=== PATIENT | male | born 1950 | race Caucasian/White ===

== ENCOUNTER → 2023-08-14 14:55 | Outpatient (REF) | payer MEDICARE, OTHER, SELFPAY | LOC: RAD 14:55 | PROVIDERS: ATTENDING PHYSICIAN Surgery Vascular Surgery | DX: I74.5 Embolism and thrombosis of iliac artery (principal); I71.40 Abdominal aortic aneurysm, without rupture, unspecified | CPT/HCPCS: 93922; 93925 ==

== ENCOUNTER → 2023-09-12 10:31 | Outpatient (REF) | payer MEDICARE, OTHER, SELFPAY ==
[2023-09-12 12:35] LABS: Blood Urea Nitrogen 12 mg/dl (9-20); Calcium 10.3 mg/dl (8.4-10.2); Carbon Dioxide 32 mmol/L (22-30); Chloride 102 mmol/L (98-107); Glucose 103 mg/dl (70-99); Potassium 4.6 mmol/L (3.5-5.1); Sodium 141 mmol/L (135-145); eGFR > 60.00
== END ==
LOC: REG 10:31
PROVIDERS: ATTENDING PHYSICIAN Registered Nurse; FAMILY PHYSICIAN Family Medicine
DX: I74.5 Embolism and thrombosis of iliac artery (principal)
CPT/HCPCS: 36415; 80048

== ENCOUNTER → 2023-09-16 10:03 | Outpatient (REF) | payer MEDICARE, OTHER, SELFPAY | LOC: HWRAD 10:03 | PROVIDERS: ATTENDING PHYSICIAN Registered Nurse; FAMILY PHYSICIAN Family Medicine; REFERRING PHYSICIAN Surgery Vascular Surgery | DX: I74.5 Embolism and thrombosis of iliac artery (principal); I71.40 Abdominal aortic aneurysm, without rupture, unspecified | CPT/HCPCS: 74174; Q9967 ==

== ENCOUNTER 2023-10-07 18:58 | Emergency (ER) | payer MEDICARE, OTHER, SELFPAY ==
[2023-10-07 18:59] VITALS: BP 118/70
[2023-10-07] MEDS: TYLENOL 1000 MG PO (19:11)
[2023-10-07 19:46] LABS: % Basophils 0.3 % (0-2); % Eosinophils 0.8 % (0-6); % Immature Granulocytes 0.4 % (0-0.5); % Lymphocytes 9.2 % (20.5-51.1); % Monocytes 8.3 % (1.7-9.3); Absolute Eosinophils 0.1 10^3/uL (0-0.7); Absolute Lymphocytes 0.7 10^3/uL (1.2-3.4); Absolute Monocytes 0.6 10^3/uL (0.1-0.6); Absolute Neutrophils 6.2 10^3/uL (1.4-6.5); Hematocrit 42.5 % (39.0-52.0); Hemoglobin 14.5 g/dL (13.0-18.0); Mean Corp Hgb Conc. 34.1 g/dL (33.0-37.0); Mean Corpuscular Hgb 28.8 pg (27.0-31.0); Mean Corpuscular Volume 84.3 fL (80.0-94.0); Mean Platelet Volume 10.3 fL (7.4-10.4); Nucleated Red Blood Cells % 0 % (-); Platelet Count 157 10^3/uL (130-400); Red Blood Cell Count 5.04 10^6/uL (4.70-6.10); Red Cell Dist. Width 13.9 % (11.5-14.5); White Blood Cell Count 7.6 10^3/uL (4.8-10.8)
[2023-10-07 19:57] LABS: Lactic Acid 2.1 mmol/L (0.7-2.0)
[2023-10-07 20:00] LABS: Blood Urea Nitrogen 13 mg/dl (9-20); Calcium 9.7 mg/dl (8.4-10.2); Carbon Dioxide 25 mmol/L (22-30); Chloride 100 mmol/L (98-107); Glucose 99 mg/dl (70-99); Sodium 140 mmol/L (135-145); eGFR > 60.00
[2023-10-07 21:03] VITALS: BMI 32.4
[2023-10-07 21:12] VITALS: BP 102/56
--- NOTE | 2023-10-07 21:29 | ED.GENMED ---
History of Present Illness
General
Chief Complaint: Urinary Symptoms
Source: patient and family (Son)
Exam Limitations: none
Time Seen by Provider: 10/07/23 21:06
History of Present Illness
History of Present Illness:
This is a 72 year old male that is brought in by family. States that they thought possible he had a UTI. stats that he was just slower then normal. States that this is what he was like when he hat a UTI. States that he does have a Dry cough. States
that he may have had a low grade fever at home. Denies any chills, chest pain, SOB, abd pain, nause, vomiting, diarrhea, headache, dizziness, urinary burning.
Past History
Past History
ED Past Medical History: Asthma, CAD, COPD, CVA (left sided weakness), GERD, HTN, Hypercholesterolemia, NIDDM, [place] and Other (chronic back pain, Sleep apnea, UTI)
ED Past Surgical History: Cardiac (Stents X 3), Orthopedic (Bilateral rotator cuff, ) and Other (AAA repaired, Fem- fem Bypass)
Social History
Tobacco: Former smoker
Alcohol: Occasional
Personal:
Living: with family
Review of Systems
Review of Systems
All Other Systems: ROS reviewed and negative except as documented in HPI and ROS
Constitutional: Reports fever; Denies chills
EENT: Reports no symptoms
Respiratory: Reports cough; Denies trouble breathing
Cardiac: Reports no symptoms; Denies chest pain
ABD/GI: Reports no symptoms; Denies abdominal pain, nausea, vomiting or diarrhea
: Reports no symptoms; Denies dysuria, frequency or urgency
Musculoskeletal: Reports no symptoms
Skin: Reports no symptoms
Neurological: Reports no symptoms; Denies dizzy or headache
Psychiatric: Reports no symptoms
Phy Exam
General Physical Exam
General Presentation: no apparent distress
General age: appears stated age
General Skin: warm and dry
General Habitus: elderly
General Mental: alert
General Hydration: appears well hydrated
ENT Exam
ENT Exam: TM's normal, pharynx normal and neck supple
Eye Exam
Eye Exam: EOMI
Cardiovascular Exam
Cardiovascular Exam: regular rate/rhythm, no edema and normal peripheral pulses
Pulmonary Exam
Pulmonary Exam: no respiratory distress, chest non tender, no rhonchi, no wheezing and other (Fine crackles right base, Dry cough occasional)
Gastrointestinal Exam
Gastrointestinal Exam: normal bowel sounds, non tender, soft, no organomegaly, no pulsatile mass and non distended
Musculoskeletal Exam
Musculoskeletal Exam: no edema and other (left arm placid from stroke)
Skin Exam
Skin Exam: normal color, warm/dry, no rash and no petechia
Psychiatric Exam
Psychiatric Exam: normal mood/affect
Course
Orders/Labs/Results
Orders:
Orders
10/07/23 19:11
Acetaminophen [Tylenol] 1,000 mg PO NOW STA
10/07/23 19:25
Basic Metabolic Panel Urgent
Comment: NO K
Complete Blood Count/With Diff Urgent
Lactic Acid Q4H
Comment: ON ICE, CANCEL 2ND ORDER IF FIRST LACTIC ACID LEVEL <2
10/07/23 21:17
COVID-19 Antigen Urgent
Source: Nasal Swab
10/07/23 21:29
0.9% Sodium Chloride 1000 ml [Nss] 1,000 ml IV BOLUS
10/07/23 21:31
CR Chest - 2 Views Urgent
Comment:
Reason For Exam: fever, cough
10/07/23 23:27
Lactic Acid Q4H
Comment: ON ICE, CANCEL 2ND ORDER IF FIRST LACTIC ACID LEVEL <2
Urinalysis Reflex To Culture Urgent
Date Specimen was Collected: 10/07/23
Time Specimen was Collected: 19:03
Abnormal Lab Results
10/07/23
19:25
Absolute Lymphs (auto) 0.7 L 10^3/uL
(1.2-3.4)
Neutrophils % 81.0 H %
(42.2-75.2)
Lymphocytes % 9.2 L %
(20.5-51.1)
Lactic Acid 2.1 H mmol/L
(0.7-2.0)
10/07/23 19:25
10/07/23 19:25
Labs unremarkable. lactic acid slightly elevated at 2.1, Urine is negative for infection. Lactic acid down to 1.2, COVID negative
Vital Signs
Initial and Last Documented VS:
Initial Vital Signs
Temp Pulse Resp BP Pulse Ox
101.7 F H 110 20 118/70 96
10/07/23 18:59 10/07/23 18:59 10/07/23 18:59 10/07/23 18:59 10/07/23 18:59
Last Documented Vital Signs
Temp Pulse Resp BP Pulse Ox
99.7 F 85 22 113/66 96
10/07/23 21:07 10/07/23 22:30 10/07/23 22:30 10/07/23 22:00 10/07/23 18:59
MDM/Problems Addressed
Differential Diagnosis Includes:
COVID, Urinary tract infection.
MDM/Problems Addressed:
This is a 72 year old male that is brought in by family with c/o concern for UTI. States that he was just a little slower then normal and this is the way he acted when he had a UTI in th past.
will check labs. COVID and get Urine. will also give IV fluids and get chest x-ray.
back into see patient and family. Explained that his blood work is normal and he is negative for COVID. Chest x-ray is normal along with patient urine. Explained that this is most likely something viral. Patient to increase his water intake to 8-8oz
glasses daily. Use Tylenol 1000mg every 6 hours for fever. Follow up with the family doctor. Return with any concerns.
Chronic conditions affecting care:
CVA
Acute Exacerbation and/or Progression of Chronic Illness:
NA
*Radiology
Radiology exam reviewed: radiology read reviewed (Chest-NO acute cardiopulmonary abnormality. )
*Pulse Oximetry
Patient hypoxic: no
*EKG
Interpreted by ED Provider?: NA
Rate: EKG- N/A
*Solid Fiber Paster Operator Interpretation
Rate: normal
Heart Rate: 86
Rhythm: sinus
*Critical Care Note
Total Time (30-74mins, 75-104mins- exclusive of procedures): Not Applicable
ED Attending Note
-
Portions of this chart may have been created with voice recognition software.� Occasional wrong word or��sound alike� substitutions may have occurred due to the inherent limitations of voice recognition software.
Discharge Plan
Departure
Patient Disposition: Home (Routine Discharge)
Date of Disposition: 10/08/23
Time of Disposition: 00:23
Patient with high blood pressure during this ER visit?: No
Condition: Good
Covid-19: Negative COVID-19
Discharge Problem:
Acute viral syndrome
Instructions: Fever, Adult (DC)
Prescriptions:
No Action
losartan 25 MG tablet
25 mg PO DAILY
tamsulosin 0.4 MG capsule
0.8 mg PO HS
atorvastatin 40 mg tablet
40 mg PO DAILY
metformin 500 mg tablet extended release 24 hr
1,000 mg PO BID
Eliquis 5 mg Tablet
5 mg PO BID
Referrals:
Carito Ureña MD [Family Provider] - Follow up in 2-3 days
Activity Restrictions/Additional Instructions:
As discussed, your blood work is normal along with your chest x-ray and urine. This is most likely a viral syndrome. Please increase your water intake to 8-8oz glasses daily. Please use Tylenol 1000mg every 6 hours for fever. Follow up with the
family doctor for recheck IF YOU HAVE FEVER THAT IS NOT CONTROLLED, OR YOU HAVE ANY OTHER CONCERNS PLEASE RETURN TO THE [facility].
Interventions
Interventions:
*Risk Screen - Suicide Last Done: 10/07/23 18:59
*General Assessment Last Done: 10/07/23 21:12
*Neglect/Abuse Screening Last Done: 10/07/23 18:59
ED- Fall Risk Assessment Last Done: 10/07/23 21:03
ED-Male Genitourinary Assessment Last Done: 10/07/23 21:03
Discharge Date and Time
Print Language: UKRAINIAN
[2023-10-07] MEDS: NSS 1000 IV (21:32)
[2023-10-07 21:41] LABS: COVID-19 Antigen Negative (Negative)
[2023-10-07 22:00] VITALS: BP 113/66
[2023-10-07 23:37] LABS: Urine Albumin Negative (Neg - Trace); Urine Bilirubin Negative (Negative); Urine Character Clear (Clear); Urine Color Yellow; Urine Glucose Negative (Negative); Urine Ketone Negative (Negative); Urine Leukocyte Negative (Negative); Urine Nitrite Negative (Negative); Urine Occult Blood Negative (Negative); Urine Specific Gravity 1.015 (<1.030); Urine Urobilinogen Negative (Neg - 1+)
[2023-10-07 23:48] LABS: Lactic Acid 1.2 mmol/L (0.7-2.0)
== END 2023-10-08 00:43 | disposition home or self-care (01) ==
LOC: EMR 18:58
PROVIDERS: Clinical Nurse Specialist Family Health; Emergency Medicine; EMERGENCY PHYSICIAN Emergency Medicine; FAMILY PHYSICIAN Family Medicine
DX: B34.9 Viral infection, unspecified (principal); R05.9 Cough, unspecified; Z11.52 Encounter for screening for COVID-19; I25.10 Atherosclerotic heart disease of native coronary artery without angina pectoris; I69.354 Hemiplegia and hemiparesis following cerebral infarction affecting left non-dominant side; I10 Essential (primary) hypertension; K21.9 Gastro-esophageal reflux disease without esophagitis; G47.30 Sleep apnea, unspecified; E78.00 Pure hypercholesterolemia, unspecified; E11.9 Type 2 diabetes mellitus without complications; G89.29 Other chronic pain; M54.9 Dorsalgia, unspecified; I25.2 Old myocardial infarction; Z79.84 Long term (current) use of oral hypoglycemic drugs; Z87.440 Personal history of urinary (tract) infections; Z87.891 Personal history of nicotine dependence; Z95.5 Presence of coronary angioplasty implant and graft; J45.909 Unspecified asthma, uncomplicated; Z88.1 Allergy status to other antibiotic agents; Z88.5 Allergy status to narcotic agent; Z88.8 Allergy status to other drugs, medicaments and biological substances
CPT/HCPCS: 99284; 96360; 71046; 80048; 81003; 83605; 85025; 87811

== ENCOUNTER → 2024-04-24 07:20 | Outpatient (REF) | payer MEDICARE, OTHER, SELFPAY | LOC: RAD 07:20 | PROVIDERS: ATTENDING PHYSICIAN Surgery Vascular Surgery; FAMILY PHYSICIAN Family Medicine | DX: I71.40 Abdominal aortic aneurysm, without rupture, unspecified (principal); I74.5 Embolism and thrombosis of iliac artery | CPT/HCPCS: 76770; 93922; 93925 ==

== ENCOUNTER → 2024-04-30 07:35 | Outpatient (REF) | payer MEDICARE, OTHER, SELFPAY | LOC: MRI 07:35 | PROVIDERS: ATTENDING PHYSICIAN Thoracic Surgery (Cardiothoracic Vascular Surgery) | DX: I25.5 Ischemic cardiomyopathy (principal); I25.10 Atherosclerotic heart disease of native coronary artery without angina pectoris | CPT/HCPCS: 75561; 75565; A9585 ==